=== PATIENT | female | born 2000 | race Hispanic/Latino ===

== ENCOUNTER 2025-01-03 09:33 | Emergency (ER) | payer OTHER ==
[2025-01-03] MEDS ORDERED: Ibuprofen 200 MG TAB ONE (10:03)
[2025-01-03] MEDS ORDERED: Lidocaine 4% Patch ONE (11:01)
== END 2025-01-03 11:07 | disposition home or self-care (01) ==
LOC: BURERS 09:33
DX: M62.838 Other muscle spasm (principal)
CPT/HCPCS: 72040; 99284